=== PATIENT | male | born 1990 | race Caucasian/White ===

== ENCOUNTER 2020-12-02 00:06 | Emergency (ER) | payer OTHER ==
[2020-12-02] MEDS ORDERED: IBUPROFEN800 MG PO (01:54)
[2020-12-02] MEDS ORDERED: NORCO 5-325 TA1 EACH PO (01:54)
== END 2020-12-02 02:30 | disposition home or self-care (01) ==
LOC: FER 00:06
DX: S92.251A Displaced fracture of navicular [scaphoid] of right foot, initial encounter for closed fracture (principal); Z88.0 Allergy status to penicillin; W19.XXXA Unspecified fall, initial encounter; Y93.41 Activity, dancing; Y92.89 Other specified places as the place of occurrence of the external cause
CPT/HCPCS: 73610; 73630